=== PATIENT | male | born 1960 | race African-American/Black ===

== ENCOUNTER 2016-11-18 06:48 | Emergency (ER) | payer MEDICARE, OTHER ==
[~2016-11-18] VITALS: Ht 167.6 cm; Wt 67.6 kg
[~2016-11-18 06:48] MED LIST: ASPI-650 PO; ATOR40TA21 PO; FERR28TA PO; GABA300C16 PO; GLIP5TAB13 PO; TAMS-14 PO
[2016-11-18 06:51] VITALS: Ht 167.6 cm; Wt 67.6 kg
[2016-11-18] MEDS ORDERED: CHLORPROMAZINE 25 MG TAB PO ONE (07:30)
[2016-11-18] MEDS ORDERED: DIPHENHYDRAMINE 50 MG CAP PO ONE (07:30)
[2016-11-18 08:07] LABS: ADD SCAN DIFF NO
[2016-11-18 08:11] LABS: BASOPHILS % 0.4 % (0.0-2.0); EOSINOPHILS # 0.1 10^3/ul (0.0-0.5); EOSINOPHILS % 0.9 % (0.0-7.0); HEMATOCRIT 35.3 % (42.0-52.0); HEMOGLOBIN 11.5 g/dl (14.0-18.0); LYMPHOCYTES # 0.9 10^3/ul (0.8-2.9); LYMPHOCYTES % 13.3 % (15.0-51.0); MEAN CORPUSCULAR HGB CONC 32.6 g/dl (32.0-37.0); MEAN CORPUSCULAR VOLUME 98.3 fl (82.0-101.0); MEAN PLATELET VOLUME 10.9 fl (7.4-10.4); MONOCYTE # 0.7 10^3/ul (0.3-0.9); MONOCYTES % 9.9 % (0.0-11.0); NEUTROPHILS % 75.4 % (39.0-77.0); PLATELET COUNT 195 10^3/UL (140-415); RED BLOOD COUNT 3.59 10^6/ul (4.70-6.10); RED CELL DISTRIBUTION WIDTH 11.8 % (11.5-14.5); WHITE BLOOD COUNT 6.7 10^3/ul (4.8-10.8)
[2016-11-18 08:23] LABS: ALBUMIN 4.4 g/dl (3.3-4.9)
[2016-11-18 08:24] LABS: POTASSIUM 3.9 mmol/L (3.5-5.1)
[2016-11-18 08:26] LABS: ALBUMIN/GLOBULIN RATIO 1.41; BILIRUBIN,INDIRECT 0.2 mg/dl (0-1.1); BILIRUBIN,TOTAL 0.2 mg/dl (0.2-1.3); TOTAL PROTEIN 7.5 g/dl (6.1-8.1)
[2016-11-18 08:27] LABS: CALCIUM 9.2 mg/dl (8.4-10.2)
[2016-11-18 08:39] LABS: TROPONIN-I 0.041 ng/ml (0.00-0.12)
--- NOTE | 2016-11-18 08:41 | RADRPT ---
PROCEDURE: XR Chest. CLINICAL INDICATION: Shortness of breath. TECHNIQUE: Single frontal chest x-ray. COMPARISON: 02/16/2014 FINDINGS: The lungs are hypoinflated with central vascular crowding. No focal opacification is seen. No pneu mothorax or pleural effusion is seen. The cardiac silhouette appears prominent, likely secondary to portable AP technique. Otherwise, the cardiomediastinal silhouette is unremarkable. The right hem idiaphragm is mildly elevated. The osseous structures are grossly unremarkable. IMPRESSION: 1. No evidence of acute cardiopulmonary disease. 2. Hypoinflation. 3. Mildly elevated right hemidiaphragm, similar to the prior exam. RPTAT: JJ .Jaime Doss MD, MD Date Time Electronically viewed and signed by .Jaime Doss MD, MD on 11/18/2016 08:41 .A/
[2016-11-18] MEDS ORDERED: THO25 PO (09:08)
[2016-11-18] MEDS ORDERED: BEN25 PO (09:08)
--- NOTE | 2016-11-18 09:35 | ERD ---
ER Documentation Chief Complaint Date/Time DATE: 11/18/16 TIME: 09:29 Chief Complaint hiccups x 7 days on/off. Coming from Dialysis HPI This is a 56-year-old male that presents to the ER after having a bout of hiccups for the last 9 days. Patient states that he is able to sleep at night however 5 minutes after he wakes up and starts getting hiccups. Patient denies any chest pain or shortness of breath. Patient does have a past medical history of diabetes and is currently on dialysis. He denies any dizziness. He denies any loss of consciousness. He denies any weaknesses or paresthesias. Patient denies any cough or cold symptoms. He denies any abdominal pain, dysphagia, nausea vomiting diarrhea. ROS 12 point review of systems was done, all negative except per HPI. Medications Home Meds Active Scripts Diphenhydramine Hcl* (Benadryl*) 25 Mg Cap, 25 MG PO Q6 for 3 Days, #30 CAP Prov:SHANTELL JORGENSEN 11/18/16 Chlorpromazine Hcl* (Thorazine*) 25 Mg Tab, 25 MG PO TID for 3 Days, TAB Prov:SHANTELL JORGENSEN 11/18/16 Reported Medications Ferrous Sulfate (Ferrous Sulfate) 1 Tab Tablet, 1 TAB PO DAILY 03/16/12 Atorvastatin (Lipitor) 40 Mg Tablet, 40 MG PO DAILY 03/16/12 Glipizide* (Glipizide*) 5 Mg Tablet, 2.5 MG PO BID 03/16/12 Aspirin (Aspirin) 81 Mg Tablet, 81 MG PO DAILY 03/16/12 Tamsulosin Hcl* (Flomax*) 0.4 Mg Cap.sr.24h, 0.4 MG PO DAILY 03/16/12 Gabapentin* (Gabapentin*) 300 Mg Capsule, 300 MG PO TID 03/16/12 Allergies Allergies: Coded Allergies: metoclopramide HCl (Verified Allergy, Severe, shortness of breath, 02/13/14) metoprolol (Unverified Allergy, Unknown, 02/14/14) RE-ENTERED UNCODED ALLERGY CODED PMhx/Soc History of Surgery: Yes (AV fistula creation lt arm, ) Anesthesia Reaction: No Hx Neurological Disorder: No Hx Respiratory Disorders: No Hx Cardiac Disorders: Yes (HTN, DYslipidemia, ) Hx Psychiatric Problems: No Hx Miscellaneous Medical Probl: Yes (dialysis x5 yrs, m/w/f) Hx Alcohol Use: No Hx Substance Use: No Hx Tobacco Use: No Physical Exam Vitals Vital Signs Date Time Temp Pulse Resp B/P Pulse Ox O2 Delivery O2 Flow Rate FiO2 11/18/16 06:51 97.8 86 18 188/71 96 Physical Exam GENERAL: The patient is well developed and appropriate for usual state of health , in no apparent distress. HEENT: Atraumatic. The oropharynx is clear with no erythema or exudates. NECK: C-spine is soft and supple. There is no cervical lymphadenopathy. CHEST: Clear to auscultation bilaterally. There are no rales, wheezes or rhonchi. HEART: Regular rate and rhythm. No murmurs, clicks, rubs or gallops. ABDOMEN: Soft, nontender and nondistended. NEURO: Alert and oriented. Cranial nerves II through XII are intact. Motor strength in all 4 extremities with 5/5 strength. Sensation grossly intact. Normal speech and gait. SKIN: There is no apparent rash or petechia. The skin is warm and dry. Result Diagram: 11/18/16 0801 11/18/16 08 Results 24 hrs Laboratory Tests Test 11/18/16 08:01 White Blood Count 6.710^3/ul Red Blood Count 3.5910^6/ul Hemoglobin 11.5g/dl Hematocrit 35.3% Mean Corpuscular Volume 98.3fl Mean Corpuscular Hemoglobin 32.0pg Mean Corpuscular Hemoglobin Concent 32.6g/dl Red Cell Distribution Width 11.8% Platelet Count 32857^3/UL Mean Platelet Volume 10.9fl Neutrophils % 75.4% Lymphocytes % 13.3% Monocytes % 9.9% Eosinophils % 0.9% Basophils % 0.4% Nucleated Red Blood Cells % 0.0/100WBC Neutrophils # 5.010^3/ul Lymphocytes # 0.910^3/ul Monocytes # 0.710^3/ul Eosinophils # 0.110^3/ul Basophils # 0.010^3/ul Nucleated Red Blood Cells # 0.010^3/ul Sodium Level 138mmol/L Potassium Level 3.9mmol/L Chloride Level 96mmol/L Carbon Dioxide Level 32mmol/L Anion Gap 14 Blood Urea Nitrogen 16mg/dl Creatinine 5.00mg/dl Glucose Level 193mg/dl Calcium Level 9.2mg/dl Total Bilirubin 0.2mg/dl Direct Bilirubin 0.00mg/dl Indirect Bilirubin 0.2mg/dl Aspartate Amino Transf (AST/SGOT) 17IU/L Alanine Aminotransferase (ALT/SGPT) 26IU/L Alkaline Phosphatase 63IU/L Troponin I 0.041ng/ml Total Protein 7.5g/dl Albumin 4.4g/dl Globulin 3.10g/dl Albumin/Globulin Ratio 1.41 Current Medications Medications (Trade) Dose Ordered Sig/Michael Route PRN Reason Start Time Stop Time Status Last Admin Dose Admin Chlorpromazine (Thorazine) 25 mg ONCE ONCE PO 11/18/16 07:30 11/18/16 07:32 DC 11/18/16 07:41 Diphenhydramine HCl (Benadryl) 50 mg ONCE ONCE PO 11/18/16 07:30 11/18/16 07:32 DC 11/18/16 07:41 Procedures/MDM Patient was given Thorazine here in the ER without any complications. I extensively discussed the risk of having tardive dyskinesia. Patient understands that this is a possible side effect and that it could be permanent. Patient still wishes to continue with treatment. I discussed this case with Dr. Walters and he agrees with my medial decision making. This is a 56-year-old male presents to the ER with ongoing hiccups. At this time etiology of hiccups is unknown however there is no evidence of acute [place] or pericarditis. Patient's EKG was read by Dr. Walters 77bpm, no ST elevation, no t wave inversion. Patient's creatinine was elevated, however this is expected as patient is currently on dialysis. There was no evidence of electrolyte abnormalities such as hyponatremia. Patient will be sent home with a short course of Thorazine with Benadryl. I told patient is extremely important that he takes these as instructed. Patient is to follow-up with his primary care doctor within 1-2 days or return to ER sooner if symptoms worsen. My medical decision making was shared with the patient he understands and agrees with plan. Departure Diagnosis: Primary Impression: Hiccups Condition: Stable Patient Instructions: Hiccups Additional Instructions: Call your primary care doctor TOMORROW for an appointment during the next 1-2 days.See the doctor sooner or return here if your condition worsens before your appointment time. SHANTELL JORGENSEN Nov 18, 2016 09:35
[2016-11-18 09:40] VITALS: BP 168/71; PULSE 78; RESP 18; TEMP 98
[2016-11-19] MEDS ORDERED: BACL10TA PO (00:48)
== END 2016-11-18 09:42 | disposition home or self-care (01) ==
LOC: FTE 06:48
DX: R06.6 Hiccough (principal); E11.9 Type 2 diabetes mellitus without complications; I10 Essential (primary) hypertension; Z79.82 Long term (current) use of aspirin; Z99.2 Dependence on renal dialysis
CPT/HCPCS: 36415; 71010; 80053; 84484; 85025; 93005

== ENCOUNTER 2016-11-18 21:50 | Emergency (ER) | payer MEDICARE, OTHER ==
[~2016-11-18] VITALS: Ht 167.6 cm; Wt 67.5 kg
[~2016-11-18 21:50] MED LIST changes: +BEN25 PO; +THO25 PO
[2016-11-18 23:16] VITALS: Ht 167.6 cm; Wt 67.5 kg
[2016-11-19] MEDS ORDERED: ONDANSETRON (ODT) 4 MG TAB ODT STA (00:03)
[2016-11-19] MEDS ORDERED: BACLOFEN 10 MG TAB PO ONE (00:30)
[2016-11-19] MEDS ORDERED: BACL10TA PO (00:48)
[2016-11-19] MEDS ORDERED: CHLORPROMAZINE 25 MG INJ IV ONE (01:30)
[2016-11-19] MEDS ORDERED: SOD CHLORIDE 0.9% 1,000 ML IV ONE (01:30)
[2016-11-19 01:46] VITALS: BP 182/88; PULSE 81
--- NOTE | 2016-11-19 02:30 | ERD ---
ER Documentation Chief Complaint Date/Time DATE: 11/19/16 TIME: 02:27 Chief Complaint Hiccups since this morning HPI This patient is a 56-year-old male with history of CKD, and type 2 diabetes currently on dialysis who presents here for the second time in the past 24 hours with intractable hiccups. The patient states he was seen here earlier today and was given Thorazine without successful relief of symptoms. He states the hiccups have been intermittent for the past 9 days but they have not stopped for the past 12 hours. He denies all other symptoms. The patient has taken no medication since he was seen in the emergency department earlier today. ROS All systems reviewed and are negative except as per history of present illness. Medications Home Meds Active Scripts Baclofen* (Baclofen*) 10 Mg Tablet, 10 MG PO Q8, #15 TAB Prov:NILDA VILLALOBOS PA-C 11/19/16 Diphenhydramine Hcl* (Benadryl*) 25 Mg Cap, 25 MG PO Q6 for 3 Days, #30 CAP Prov:SHANTELL JORGENSEN 11/18/16 Chlorpromazine Hcl* (Thorazine*) 25 Mg Tab, 25 MG PO TID for 3 Days, TAB Prov:SHANTELL JORGENSEN 11/18/16 Reported Medications Ferrous Sulfate (Ferrous Sulfate) 1 Tab Tablet, 1 TAB PO DAILY 03/16/12 Atorvastatin (Lipitor) 40 Mg Tablet, 40 MG PO DAILY 03/16/12 Glipizide* (Glipizide*) 5 Mg Tablet, 2.5 MG PO BID 03/16/12 Aspirin (Aspirin) 81 Mg Tablet, 81 MG PO DAILY 03/16/12 Tamsulosin Hcl* (Flomax*) 0.4 Mg Cap.sr.24h, 0.4 MG PO DAILY 03/16/12 Gabapentin* (Gabapentin*) 300 Mg Capsule, 300 MG PO TID 03/16/12 Allergies Allergies: Coded Allergies: metoclopramide HCl (Verified Allergy, Severe, shortness of breath, 02/13/14) metoprolol (Unverified Allergy, Unknown, 02/14/14) RE-ENTERED UNCODED ALLERGY CODED PMhx/Soc History of Surgery: Yes (AV fistula creation lt arm, ) Anesthesia Reaction: No Hx Neurological Disorder: No Hx Respiratory Disorders: No Hx Cardiac Disorders: Yes (HTN, DYslipidemia, ) Hx Psychiatric Problems: No Hx Miscellaneous Medical Probl: Yes (dialysis x5 yrs, m/w/f) Hx Alcohol Use: No Hx Substance Use: No Hx Tobacco Use: No Smoking Status: Never smoker FmHx Noncontributory for chief complaint. Physical Exam Vitals Vital Signs Date Time Temp Pulse Resp B/P Pulse Ox O2 Delivery O2 Flow Rate FiO2 11/19/16 01:46 81 182/88 11/19/16 01:03 82 188/93 11/18/16 23:16 98.0 80 18 182/82 98 Physical Exam Const: The patient has active hiccups. The patient is resting comfortably in no acute distress. Head: Atraumatic Eyes: Normal Conjunctiva ENT: Normal External Ears, Nose and Mouth. Neck: Full range of motion..~ No meningismus. Resp: Clear to auscultation bilaterally Cardio: Regular rate and rhythm, no murmurs Abd: Soft, non tender, non distended. Normal bowel sounds Skin: No petechiae or rashes Back: No midline or flank tenderness Ext: No cyanosis, or edema Neur: Awake and alert Psych: Normal Mood and Affect Results 24 hrs Current Medications Medications (Trade) Dose Ordered Sig/Michael Route PRN Reason Start Time Stop Time Status Last Admin Dose Admin Baclofen (Lioresal) 10 mg ONCE ONCE PO 11/19/16 00:30 11/19/16 00:31 DC 11/19/16 01:00 Ondansetron HCl 4 mg 4 mg ONCE STAT ODT 11/19/16 00:03 11/19/16 00:07 DC 11/19/16 01:00 Sodium Chloride (NS) 1,000 ml @ 1,000 mls/hr Q1H ONCE IV 11/19/16 01:30 11/19/16 01:46 DC Chlorpromazine (Thorazine) 50 mg ONCE ONCE IV 11/19/16 01:30 11/19/16 01:31 DC Procedures/MDM EMERGENCY DEPARTMENT COURSE / MEDICAL DECISION MAKING: This is a 56-year-old male who comes to the emergency room secondary to complaints of intractable hiccups. The patient was given p.o. Zofran and p.o. baclofen in the department. On re- evaluation, the patient was feeling improved. The primary diagnosis is hiccups currently resolved. Discharge: I have discussed the lab results and diagnostic findings with the patient and answered any questions or concerns. The patient is to continue taking medications prescribed for him at his previous visit exactly as prescribed. The patient was advised to followup with their PMD in 1-2 days and to return to the Emergency Department if there are any new or worsening symptoms. The patient understood and agreed with the diagnosis, treatment and plan. The patient is stable for discharge at this time. This case was discussed with my supervising physician, Dr. Jose Herrera, who agreed with the ED course. Departure Diagnosis: Primary Impression: Hiccups Condition: Fair Patient Instructions: Hiccups Referrals: COMM[facility]ITY CLINICS YOU HAVE RECEIVED A MEDICAL SCREENING EXAM AND THE RESULTS INDICATE THAT YOU DO NOT HAVE A CONDITION THAT REQUIRES URGENT TREATMENT IN THE EMERGENCY DEPARTMENT. FURTHER EVALUATION AND TREATMENT OF YOUR CONDITION CAN WAIT UNTIL YOU ARE SEEN IN YOUR DOCTORS OFFICE WITHIN THE NEXT 1-2 DAYS. IT IS YOUR RESPONSIBILITY TO MAKE AN APPOINTMENT FOR FOLOW-UP CARE. IF YOU HAVE A PRIMARY DOCTOR --you should call your primary doctor and schedule an appointment IF YOU DO NOT HAVE A PRIMARY DOCTOR YOU CAN CALL OUR PHYSICIAN REFERRAL HOTLINE AT IF YOU CAN NOT AFFORD TO SEE A PHYSICIAN YOU CAN CHOSE FROM THE FOLLOWING [facility] [address] [facility]. [facility] [address] [facility]. [facility] [address] [facility] [facility] [address] [facility]. [facility] [address] [facility]. [facility]. [address] Additional Instructions: Follow-up with your primary care physician within 1 week. Return to the emergency department immediately should you have any new or worsening symptoms, uncontrolled fevers, or other unexplained symptoms. Take all medications as directed. NILDA VILLALOBOS PA-C Nov 19, 2016 02:30
== END 2016-11-19 01:46 | disposition home or self-care (01) ==
LOC: FTE 21:50
DX: R06.6 Hiccough (principal); I10 Essential (primary) hypertension; E11.9 Type 2 diabetes mellitus without complications; Z79.84 Long term (current) use of oral hypoglycemic drugs; Z99.2 Dependence on renal dialysis
CPT/HCPCS: 99283; J3230; J7030

== ENCOUNTER 2016-11-20 06:36 | Emergency (ER) | payer MEDICARE, OTHER ==
[~2016-11-20] VITALS: Ht 167.6 cm; Wt 66.0 kg
[~2016-11-20 06:36] MED LIST changes: +BACL10TA PO
[2016-11-20] MEDS ORDERED: SOD CHLORIDE 0.9% 250 ML IV STA (06:39)
[2016-11-20] MEDS ORDERED: CHLORPROMAZINE 25 MG INJ IM ONE (07:00)
[2016-11-20] MEDS ORDERED: LORAZEPAM 2 MG INJ IV ONE (07:00)
[2016-11-20] MEDS ORDERED: LIDOCAINE 2% VISC 15 ML CUP PO ONE (07:00)
[2016-11-20 07:03] VITALS: Ht 167.6 cm; Wt 66.0 kg
--- NOTE | 2016-11-20 07:36 | ERD ---
ER Documentation Chief Complaint Date/Time DATE: 11/20/16 TIME: 07:34 Chief Complaint R39, FROM [facility], C/O HICUPS NON STOP, 3RD VISIT THIS WEEK. HPI This is a 36-year-old male who presents to the emergency room after being brought in by ambulance for evaluation of hiccups. This patient has been to the emergency room 2 times this week for the same reasons. He was given Thorazine, baclofen, Benadryl, and states that his hiccups is not drastically improved. The patient came to the ER today for evaluation. ROS All systems reviewed and are negative except as per history of present illness. Medications Home Meds Active Scripts Baclofen* (Baclofen*) 10 Mg Tablet, 10 MG PO Q8, #15 TAB Prov:NILDA VILLALOBOS PA-C 11/19/16 Diphenhydramine Hcl* (Benadryl*) 25 Mg Cap, 25 MG PO Q6 for 3 Days, #30 CAP Prov:SHANTELL JORGENSEN 11/18/16 Chlorpromazine Hcl* (Thorazine*) 25 Mg Tab, 25 MG PO TID for 3 Days, TAB Prov:SHANTELL JORGENSEN 11/18/16 Reported Medications Ferrous Sulfate (Ferrous Sulfate) 1 Tab Tablet, 1 TAB PO DAILY 03/16/12 Atorvastatin (Lipitor) 40 Mg Tablet, 40 MG PO DAILY 03/16/12 Glipizide* (Glipizide*) 5 Mg Tablet, 2.5 MG PO BID 03/16/12 Aspirin (Aspirin) 81 Mg Tablet, 81 MG PO DAILY 03/16/12 Tamsulosin Hcl* (Flomax*) 0.4 Mg Cap.sr.24h, 0.4 MG PO DAILY 03/16/12 Gabapentin* (Gabapentin*) 300 Mg Capsule, 300 MG PO TID 03/16/12 Allergies Allergies: Coded Allergies: metoclopramide HCl (Verified Allergy, Severe, shortness of breath, 02/13/14) metoprolol (Unverified Allergy, Unknown, 02/14/14) RE-ENTERED UNCODED ALLERGY CODED PMhx/Soc History of Surgery: Yes (AV fistula creation lt arm, ) Anesthesia Reaction: No Hx Neurological Disorder: No Hx Respiratory Disorders: No Hx Cardiac Disorders: Yes (HTN, DYslipidemia, ) Hx Psychiatric Problems: No Hx Miscellaneous Medical Probl: Yes (dialysis x5 yrs, m/w/f) Hx Alcohol Use: No Hx Substance Use: No Hx Tobacco Use: No Smoking Status: Former smoker Physical Exam Vitals Vital Signs Date Time Temp Pulse Resp B/P Pulse Ox O2 Delivery O2 Flow Rate FiO2 11/20/16 07:03 98.7 82 19 188/82 96 Physical Exam Const: Patient sitting in bed, with hiccups every 4-5 seconds. Head: Atraumatic Eyes: Normal Conjunctiva ENT: Normal External Ears, Nose and Mouth. Neck: Full range of motion..~ No meningismus. Resp: Clear to auscultation bilaterally Cardio: Regular rate and rhythm, no murmurs Abd: Soft, non tender, non distended. Normal bowel sounds Skin: No petechiae or rashes Back: No midline or flank tenderness Ext: No cyanosis, or edema Neur: Awake and alert Psych: Patient does appear to be mildly anxious Results 24 hrs Current Medications Medications (Trade) Dose Ordered Sig/Michael Route PRN Reason Start Time Stop Time Status Last Admin Dose Admin Chlorpromazine (Thorazine) 50 mg ONCE ONCE IM 11/20/16 07:00 11/20/16 07:01 DC 11/20/16 06:51 Lorazepam (Ativan) 1 mg ONCE ONCE IV 11/20/16 07:00 11/20/16 07:01 DC 11/20/16 06:50 Lidocaine 15 ml 15 ml ONCE ONCE PO 11/20/16 07:00 11/20/16 07:01 DC 11/20/16 06:51 Sodium Chloride (NS) 250 ml @ 250 mls/hr Q1H STAT IV 11/20/16 06:39 11/20/16 07:38 Procedures/MDM This 46-year-old male presents to the ER for evaluation of hiccups. When I evaluated this patient he did have hiccups every 4-5 seconds, he did appear anxious as well. The patient was given Thorazine, he was also given Ativan, and viscous lidocaine. Pulmonary evaluation this patient he is sleeping comfortably, he has no hiccups at this time. The patient was given Ativan to the fact that he was anxious and the patient is no acute distress at this time. No respiratory distress and will be discharged home with instructions to follow-up with his primary care physician. Departure Diagnosis: Primary Impression: Intractable singultus Condition: Stable AUBREY ROY DO Nov 20, 2016 07:36
[2016-11-20] MEDS ORDERED: hydrALAzine 20 MG INJ IV ONE (09:30)
[2016-11-20 09:35] VITALS: BP 185/84; PULSE 81; RESP 19
== END 2016-11-20 10:12 | disposition home or self-care (01) ==
LOC: E/R 06:36
DX: R06.6 Hiccough (principal); I10 Essential (primary) hypertension; E11.9 Type 2 diabetes mellitus without complications; Z79.84 Long term (current) use of oral hypoglycemic drugs; Z79.82 Long term (current) use of aspirin; Z87.891 Personal history of nicotine dependence
CPT/HCPCS: 96361; 96372; 96374; 96375; 99284; J0360; J2060; J3230; J7040

== ENCOUNTER 2017-06-14 13:32 | Emergency (ER) | payer MEDICARE, OTHER ==
[~2017-06-14] VITALS: Wt 80.0 kg
--- NOTE | 2017-06-14 14:00 | ERD ---
ER Documentation Chief Complaint Chief Complaint Epistaxis HPI This is a 56-year-old male with a past medical history of hypertension, diabetes , hyperlipidemia, end-stage renal disease on dialysis Wednesday/Wednesday/Wednesday, most recently had dialysis this morning but was not given heparin secondary to his nosebleed who is presenting with intermittent nosebleed today. The patient reportedly woke up this morning at around 3 AM and noticed bleeding coming from his left nares. The patient bled for 30 minutes to an hour, but it seemed to resolve. The patient did go to dialysis this morning and completed his 3 hours. He reportedly did not have bleeding during this time. Because of his epistaxis, the patient was not given any heparin during the treatment. After treatment, the patient's epistaxis recurred. The patient had been bleeding at home for approximately 1-2 hours, but he was unable to achieve hemostasis so he called an ambulance for evaluation in the emergency department. The patient did attempt packing with Kleenex to the left nares but it was not successful. The patient started to have bleeding going down his throat as well as into the right nares, but he reports that most of the bleeding has come from the left nares. The patient has since become mildly nauseated, he has not truly vomited. He has been coughing up clots of blood. He does take baby aspirin daily. The patient denies feeling sick recently. The patient denies fever or chills. The patient has had no headache or vision changes. The patient does not endorse neck or back pain. The patient denies lightheadedness or dizziness. The patient has had no chest pain or shortness of breath or trouble breathing. The patient denies abdominal pain or changes to bowel movements or urination. The patient has had no focal deficits. The patient has had no weakness or numbness or tingling to the face or extremities. ROS All systems reviewed and are negative except as per history of present illness. Medications Home Meds Reported Medications Hydralazine Hcl* (Hydralazine Hcl*) 50 Mg Tab, 50 MG PO DAILY, #120 TAB 06/14/17 Folic Acid* (Folic Acid*) 1 Mg Tablet, 1 MG PO DAILY, TAB 06/14/17 Multivit/Ca Carb/B Cmplx/Fa* (Heidy-Torrey*) 1 Tab Tab, 1 TAB PO DAILY, TAB 06/14/17 Doxazosin Mesylate* (Doxazosin Mesylate*) 1 Mg Tablet, 1 MG PO HS, TAB 06/14/17 Simvastatin* (Zocor*) 20 Mg Tablet, 20 MG PO QHS, #30 TAB 06/14/17 Aspirin (Aspirin) 81 Mg Tablet, 81 MG PO DAILY 03/16/12 Tamsulosin Hcl* (Flomax*) 0.4 Mg Cap.sr.24h, 0.4 MG PO DAILY 03/16/12 Discontinued Reported Medications Ferrous Sulfate (Ferrous Sulfate) 1 Tab Tablet, 1 TAB PO DAILY 03/16/12 Atorvastatin (Lipitor) 40 Mg Tablet, 40 MG PO DAILY 03/16/12 Glipizide* (Glipizide*) 5 Mg Tablet, 2.5 MG PO BID 03/16/12 Gabapentin* (Gabapentin*) 300 Mg Capsule, 300 MG PO TID 03/16/12 Discontinued Scripts Baclofen* (Baclofen*) 10 Mg Tablet, 10 MG PO Q8, #15 TAB Prov:NILDA VILLALOBOS PA-C 11/19/16 Diphenhydramine Hcl* (Benadryl*) 25 Mg Cap, 25 MG PO Q6 for 3 Days, #30 CAP Prov:SHANTELL JORGENSEN 11/18/16 Chlorpromazine Hcl* (Thorazine*) 25 Mg Tab, 25 MG PO TID for 3 Days, TAB Prov:SHANTELL JORGENSEN 11/18/16 Allergies Allergies: Coded Allergies: metoclopramide HCl (Verified Allergy, Severe, shortness of breath, ) metoprolol (Unverified Allergy, Unknown, 06/14/17) RE-ENTERED UNCODED ALLERGY CODED PMhx/Soc History of Surgery: Yes (AV fistula creation lt arm, ) Anesthesia Reaction: No Hx Neurological Disorder: No Hx Respiratory Disorders: No Hx Cardiac Disorders: Yes (HTN, DYslipidemia, ) Hx Psychiatric Problems: No Hx Miscellaneous Medical Probl: Yes (dialysis x5 yrs, m/w/f) Hx Alcohol Use: No Hx Substance Use: No Hx Tobacco Use: No FmHx Family History: coronary disease, diabetes Physical Exam Vitals Vital Signs Date Time Temp Pulse Resp B/P Pulse Ox O2 Delivery O2 Flow Rate FiO2 06/14/17 18:10 98.4 77 18 181/85 98 Room Air 10/30/17 16:02 79 18 178/83 96 Room Air 06/14/17 13:42 98.4 78 20 184/85 98 Physical Exam Const: No apparent distress, well-developed, well-nourished Head: Atraumatic Eyes: Normal Conjunctiva. Extraocular movements intact. ENT: Normal External Ears. Long blood clot in the left nares with bilateral epistaxis, left greater than right, slow ooze of blood in the posterior oropharynx. Neck: Full range of motion. ~ No meningismus. Resp: Clear to auscultation bilaterally Cardio: Regular rate and rhythm, no murmurs. Palpable thrill to left arm AV fistula with no bleeding or hematoma or ecchymosis. Abd: Soft, non tender, non distended. Normal bowel sounds Skin: No petechiae or rashes Back: No midline or flank tenderness Ext: No cyanosis, or edema Neur: Awake and alert, oriented 4. Cranial nerves intact. No facial droop. Normal strength and sensation in all extremities. Coordination with finger to nose normal. Psych: Normal Mood and Affect Result Diagram: 06/14/17 1410 06/14/17 1410 Results 24 hrs Laboratory Tests Test 06/14/17 14:10 White Blood Count 6.210^3/ul Red Blood Count 3.4610^6/ul Hemoglobin 11.2g/dl Hematocrit 34.1% Mean Corpuscular Volume 98.6fl Mean Corpuscular Hemoglobin 32.4pg Mean Corpuscular Hemoglobin Concent 32.8g/dl Red Cell Distribution Width 11.7% Platelet Count 60514^3/UL Mean Platelet Volume 10.9fl Neutrophils % 70.7% Lymphocytes % 15.9% Monocytes % 10.9% Eosinophils % 1.6% Basophils % 0.6% Nucleated Red Blood Cells % 0.0/100WBC Neutrophils # 4.410^3/ul Lymphocytes # 1.010^3/ul Monocytes # 0.710^3/ul Eosinophils # 0.110^3/ul Basophils # 0.010^3/ul Nucleated Red Blood Cells # 0.010^3/ul Prothrombin Time 12.7Sec Prothrombin Time Ratio 1.0 INR International Normalized Ratio 0.95 Activated Partial Thromboplast Time 28.5Sec Sodium Level 141mmol/L Potassium Level 4.9mmol/L Chloride Level 96mmol/L Carbon Dioxide Level 33mmol/L Anion Gap 17 Blood Urea Nitrogen 33mg/dl Creatinine 6.56mg/dl Glucose Level 153mg/dl Calcium Level 9.3mg/dl Total Bilirubin 0.2mg/dl Direct Bilirubin 0.00mg/dl Indirect Bilirubin 0.2mg/dl Aspartate Amino Transf (AST/SGOT) 25IU/L Alanine Aminotransferase (ALT/SGPT) 24IU/L Alkaline Phosphatase 63IU/L Total Protein 7.4g/dl Albumin 4.6g/dl Procedures/MDM MDM The patient's presentation warrants further investigation. An anterior/ posterior Rhino Rocket was placed in the left nares to tampanode the bleeding vessel. Once placed, the patient did report a decrease in active bleeding that he felt going down the back of his throat. He also reported a decrease in blood coming through the right nares. I will observe the patient for a period of time to see if hemostasis is achieved. The patient's vital signs are unremarkable. Given that he reports bleeding for most of the day, I will obtain basic blood work including a CBC to evaluate for anemia. LABS The patient's blood work was obtained and reviewed. The patient's CBC shows no leukocytosis or left shift. The patient is afebrile and does not appear systemically ill. I do not suspect a systemic infection. The patient is mildly anemic, but this does not require emergent intervention. The patient's platelet count is unremarkable. The patient has chronic kidney disease with an elevated BUN and creatinine. The patient also appears to have a metabolic alkalosis, which also appears to be his baseline. The patient's CMP shows no signs of emergent metabolic or electrolyte abnormality requiring emergent treatment. His INR was unremarkable. TREATMENT/DISPOSITION Hemostasis did appear to be achieved. A discussion was had regarding keeping the Rhino Rocket in for reevaluation in 24-48 hours versus taking it out and seeing if hemostasis could continue. The patient did not want to keep the Rhino Rocket and at home as he endorsed significant discomfort. It was removed and the patient was again observed without additional hemostasis. I did evaluate for any signs of a bleeding site. However, there was quite a bit of dried clotted blood around the nares and this could not be visualized. The patient is later endorsed sleeping with a fan running next to him as it has been hot recently. He was educated on the effect of a fan blowing dry air on mucous membranes. He intends to use a humidifier when sleeping. At this time, I feel that the patient stable for discharge. He will need follow -up with his primary care physician in 2-3 days. He will be given strict precautions with which to return to the emergency department, including recurrence of nosebleed. The patient's blood pressure was elevated at greater than 120/80 while in the emergency department. The patient was otherwise stable with no evidence of hypertensive urgency or emergency. The patient will require reevaluation of his blood pressure in 2-3 days, but this may be completed by a primary care physician as an outpatient. He does not require admission for blood pressure control. The patient did report not taking his blood pressure medicines today. He was educated on the correlation with continued high blood pressure and epistaxis. Departure Diagnosis: Primary Impression: Epistaxis Additional Impressions: CKD (chronic kidney disease) Chronic kidney disease stage: on chronic dialysis Qualified Code: N18.6 - Stage 5 chronic kidney disease on chronic dialysis High blood pressure Hypertension type: unspecified Qualified Code: I10 - Hypertension, unspecified type Condition: JOIE Membreno MD Jun 14, 2017 14:00
[2017-06-14 14:28] LABS: BASOPHILS % 0.6 % (0.0-2.0); EOSINOPHILS # 0.1 10^3/ul (0.0-0.5); EOSINOPHILS % 1.6 % (0.0-7.0); HEMATOCRIT 34.1 % (42.0-52.0); HEMOGLOBIN 11.2 g/dl (14.0-18.0); LYMPHOCYTES % 15.9 % (15.0-51.0); MEAN CORPUSCULAR HEMOGLOBIN 32.4 pg (29.0-33.0); MEAN CORPUSCULAR HGB CONC 32.8 g/dl (32.0-37.0); MEAN CORPUSCULAR VOLUME 98.6 fl (82.0-101.0); MEAN PLATELET VOLUME 10.9 fl (7.4-10.4); MONOCYTE # 0.7 10^3/ul (0.3-0.9); MONOCYTES % 10.9 % (0.0-11.0); NEUTROPHIL # 4.4 10^3/ul (1.6-7.5); NEUTROPHILS % 70.7 % (39.0-77.0); PLATELET COUNT 221 10^3/UL (140-415); RED BLOOD COUNT 3.46 10^6/ul (4.70-6.10); RED CELL DISTRIBUTION WIDTH 11.7 % (11.5-14.5); WHITE BLOOD COUNT 6.2 10^3/ul (4.8-10.8)
[2017-06-14 14:51] LABS: INR 0.95; PARTIAL THROMBOPLASTIN TIME 28.5 Sec (25.0-35.0); PROTIME 12.7 Sec (12.2-14.2)
[2017-06-14 14:56] LABS: ALBUMIN 4.6 g/dl (3.3-4.9); BILIRUBIN,INDIRECT 0.2 mg/dl (0-1.1); BILIRUBIN,TOTAL 0.2 mg/dl (0.2-1.3); CALCIUM 9.3 mg/dl (8.4-10.2); CREATININE 6.56 mg/dl (0.61-1.24); POTASSIUM 4.9 mmol/L (3.5-5.1); TOTAL PROTEIN 7.4 g/dl (6.1-8.1)
[2017-06-14] MEDS ORDERED: SIMV20TA PO (15:18)
[2017-06-14] MEDS ORDERED: DOXA1TAB PO (15:19)
[2017-06-14] MEDS ORDERED: NEPH PO (15:21)
[2017-06-14] MEDS ORDERED: FOLI-49 PO (15:21)
[2017-06-14] MEDS ORDERED: HYDR-3672 PO (15:21)
[2017-06-14 18:10] VITALS: BP 181/85; PULSE 77; RESP 18; TEMP 98.4
== END 2017-06-14 18:10 | disposition home or self-care (01) ==
LOC: E/R 13:32
DX: R04.0 Epistaxis (principal); I12.0 Hypertensive chronic kidney disease with stage 5 chronic kidney disease or end stage renal disease; N18.6 End stage renal disease; E11.22 Type 2 diabetes mellitus with diabetic chronic kidney disease; Z79.82 Long term (current) use of aspirin; Z79.84 Long term (current) use of oral hypoglycemic drugs; Z99.2 Dependence on renal dialysis
CPT/HCPCS: 80048; 80076; 85025; 85610; 85730; 86850; 86900; 86901; 99283

== ENCOUNTER 2018-05-24 22:19 | Inpatient (IN) | END 2018-05-27 21:55 | disposition home or self-care (01) | DRG 917 ==